=== PATIENT | male | born 1995 | race Caucasian/White ===

== ENCOUNTER → 2018-02-19 | Outpatient (REF) | payer OTHER ==
[2018-02-19 22:10] LABS: CHLAMYDIA DNA AMPLIFICATION NEGATIVE (NEGATIVE); GC DNA AMPLIFICATION POSITIVE (NEGATIVE)
== END ==
LOC: M SFHCLERA 19:33
PROVIDERS: ATTEND Physician Assistant
DX: R36.9 Urethral discharge, unspecified (principal)

== ENCOUNTER 2019-06-09 13:45 | Day surgery (SDC) | payer OTHER ==
[~2019-06-09] VITALS: Ht 170.2 cm; Wt 80.5 kg
[~2019-06-09 13:45] MED LIST: KEFL500C17 PO; LIDOCAINE 1% MDV 20ML VIAL SQ PRN; ceFAZolin SOD 2 GM in IV 1 EA IV ONE
[2019-06-09] MEDS ORDERED: ADVI100T PO (14:37)
[2019-06-09] MEDS ORDERED: MIDAZOLAM INJ 2 MG/2 ML VIAL (J2250) As Ordered ONE (15:14)
[2019-06-09] MEDS ORDERED: ROCURONIUM BROMIDE 50 MG/5 ML VIAL As Ordered ONE (15:14)
[2019-06-09] MEDS ORDERED: propofoL 200 MG/20 ML VIAL As Ordered ONE (15:14)
[2019-06-09] MEDS ORDERED: fentaNYL 250 MCG/5 ML INJECTION (J3010) As Ordered ONE (15:14)
[2019-06-09] MEDS ORDERED: ONDANSETRON 4MG/2ML VIAL (J2405) As Ordered ONE (15:14)
[2019-06-09] MEDS ORDERED: LIDOCAINE 2% 100MG/5ML SDV (FOR ANES.) As Ordered ONE (15:14)
[2019-06-09] MEDS ORDERED: dexameTHASONE 4 MG/ML 1ML VIAL (J1100 PER 1MG) As Ordered ONE (15:15)
[2019-06-09] MEDS ORDERED: LR 1,000 ML IV SCH ×2 (15:30→17:15)
[2019-06-09] MEDS ORDERED: BUPIVACAINE/EPIN 0.25% 30 ML VIAL As Ordered ONE (16:03)
[2019-06-09] MEDS ORDERED: ONDANSETRON 4MG/2ML VIAL (J2405) IV PRN (17:15)
[2019-06-09] MEDS ORDERED: fentaNYL 100 MCG/2 ML INJECTION (J3010) IV PRN (17:15)
[2019-06-09] MEDS ORDERED: oxyCODONE 5MG TAB PO PRN ×2 (17:15→18:16)
--- NOTE | 2019-06-09 18:00 | RO ---
DATE OF PROCEDURE: 06/09/2019 PREPROCEDURE DIAGNOSIS: Left middle finger open proximal phalanx extraarticular base fracture, left ring finger closed proximal phalanx extraarticular base fracture, left index finger laceration 0.5 cm. POSTPROCEDURE DIAGNOSIS: Left middle finger open proximal phalanx extraarticular base fracture, left ring finger closed proximal phalanx extraarticular base fracture, left index finger laceration 0.5 cm. PROCEDURE: Left middle finger irrigation and debridement open fracture with open reduction internal fixation of the proximal phalanx, closed reduction and percutaneous pinning of ring finger proximal phalanx, irrigation and debridement of index finger laceration 0.5 cm SURGEON: Deejay Rose MD REAL ESTATE JOB TITLES: None. ANESTHESIA: INDICATIONS: This is a 23-year-old male who suffered a ring finger, middle finger proximal phalanx base extraarticular fracture. While the ring finger was in appropriate alignment, the middle finger was displaced and also had a traumatic laceration over top suggestive of an open fracture. We discussed the risks and benefits of open fractures, increased risk of infection, and the indications for irrigating, debriding and fixing the fracture. The patient expressed understanding and agreement with this plan. We discussed the risks and benefits, including but not limited to, infection, damage to surrounding structures, incomplete relief, malunion, nonunion, further surgery, patient wished to proceed. PREOPERATIVE ANTIBIOTICS: 2 grams of Ancef. BLOOD LOSS: 5 mL. No tourniquet. COMPLICATIONS: None. DESCRIPTION OF PROCEDURE: The patient was brought to the operating room (OR) in the supine position, underwent general anesthesia, at which point a time-out confirming site, side and surgery. We then injected 20 mL of 0.25% Marcaine with epinephrine in a local block for the ring and middle finger, and index finger, at which point we prepped and draped the left hand in the usual fashion. We then extended the traumatic laceration over the middle finger and index finger by a few millimeters on either side, sharply debrided the skin, subcutaneous tissue on the index finger and skin, subcutaneous tissue and bone on the middle finger at the fracture site, at which point we were then able to open reduce the middle finger and use two 0.45 K-wires in a cross pin fashion to fix the fracture. We were happy with our placement of these two wires with fracture reduction and fixation. We confirmed these on AP, lateral and oblique films. We then proceeded to the ring finger and did closed reduction and percutaneous pinning of the ring finger with indirect manipulation in a cross pinning fashion with two additional 0.45 mm K-wires. At which point, we were happy with our reduction and fixation, confirmed in AP, lateral and obliques. We then irrigated the two wounds thoroughly, closed with interrupted #3-0 nylon sutures for the index and middle finger. We dressed the wound with Adaptic gauze, sterile Webril and placed him in an intrinsic plus splint. The patient was awakened and taken to the post-anesthesia care unit (PACU) in stable condition. POSTOPERATIVE PLAN: The patient will be seen in the office approximately 2 weeks postoperatively, at which point will remove the sutures and refer him to a hand physical therapist for thermal splint fabrication and initiation of protected range of motion. Will plan weeks postoperatively. The patient expressed understanding and agreement with that plan ahead of time. He will also continue his antibiotic that he received in the emergency room (ER) yesterday until completion. He also states that tetanus is up to date.
[2019-06-09 18:45] VITALS: BP 132/85
--- NOTE | 2019-06-10 02:38 | REP ---
Clinical: Status post fixation. Technique: Intraoperative fluoroscopic imaging using portable C-arm technique. Findings: Multiple images demonstrate the patient to be status post satisfactory reduction and fixation with multiple K-wires through the third and fourth proximal phalanges. Total fluoroscopic time 119 seconds. Impression: Status post satisfactory reduction and fixation. Electronically Signed by Santos Austin MD 06/10/2019 02:30 A
== END 2019-06-09 19:06 | disposition home or self-care (01) ==
LOC: M SDC 13:45
PROVIDERS: ATTEND Orthopaedic Surgery Hand Surgery
DX: S62.613A Displaced fracture of proximal phalanx of left middle finger, initial encounter for closed fracture (principal); S62.615A Displaced fracture of proximal phalanx of left ring finger, initial encounter for closed fracture; S61.211A Laceration without foreign body of left index finger without damage to nail, initial encounter; X58.XXXA Exposure to other specified factors, initial encounter; Y92.89 Other specified places as the place of occurrence of the external cause; Y93.9 Activity, unspecified; Y99.9 Unspecified external cause status
CPT/HCPCS: 11012; 11042; 26727; 26735; 73140; J0690; J1100; J2250; J2405; J3010